=== PATIENT | female | born 1980 | race Caucasian/White ===

== ENCOUNTER → 2023-03-14 06:35 | Day surgery (SDC) | payer OTHER, SELFPAY ==
[2023-03-11 09:06] LABS: % Basophils 0.4 % (0-2); % Eosinophils 1.1 % (0-6); % Immature Granulocytes 0.1 % (0-0.5); % Monocytes 5.5 % (1.7-9.3); % Neutrophils 62.9 % (42.2-75.2); Absolute Eosinophils 0.1 10^3/uL (0-0.7); Absolute Lymphocytes 2.1 10^3/uL (1.2-3.4); Absolute Monocytes 0.4 10^3/uL (0.1-0.6); Absolute Neutrophils 4.5 10^3/uL (1.4-6.5); Hematocrit 37.9 % (37.0-47.0); Hemoglobin 12.8 g/dL (12.0-16.0); Mean Corp Hgb Conc. 33.8 g/dL (33.0-37.0); Mean Corpuscular Hgb 31.1 pg (27.0-31.0); Mean Corpuscular Volume 92.2 fL (81.0-99.0); Mean Platelet Volume 10.9 fL (7.4-10.4); Nucleated Red Blood Cells % 0 %; Platelet Count 287 10^3/uL (130-400); Red Blood Cell Count 4.11 10^6/uL (4.20-5.40); White Blood Cell Count 7.1 10^3/uL (4.8-10.8)
[2023-03-11 09:31] LABS: Chloride 103 mmol/L (98-107); Potassium 4.1 mmol/L (3.5-5.1); Sodium 139 mmol/L (135-145)
[2023-03-11 09:47] LABS: Blood Urea Nitrogen 19 mg/dl (7-17); Calcium 9.3 mg/dl (8.4-10.2); Carbon Dioxide 26 mmol/L (22-30); Glucose 89 mg/dl (70-99); eGFR > 60.00
[2023-03-11 11:30] LABS: HCG, Urine Qualitative Screen Negative
[2023-03-11 14:20] VITALS: BMI 36.1
== END ==
LOC: SDS 06:35
PROVIDERS: ATTENDING PHYSICIAN Obstetrics & Gynecology; FAMILY PHYSICIAN Nurse Practitioner Family
DX: N92.1 Excessive and frequent menstruation with irregular cycle (principal); Z53.8 Procedure and treatment not carried out for other reasons
CPT/HCPCS: 58558; 36415; 80048; 81025; 85025; 86850; 86900; 86901

== ENCOUNTER → 2023-04-30 09:32 | Outpatient (REF) | payer OTHER, SELFPAY | LOC: WDC 09:32 | PROVIDERS: ATTENDING PHYSICIAN Nurse Practitioner Family | DX: Z12.31 Encounter for screening mammogram for malignant neoplasm of breast (principal) | CPT/HCPCS: 77063; 77067 ==

== ENCOUNTER 2023-08-08 06:12 | Day surgery (SDC) | payer OTHER, SELFPAY ==
[2023-08-06 08:44] LABS: HCG, Urine Qualitative Screen Negative
[2023-08-06 08:47] LABS: % Basophils 0.5 % (0-2); % Eosinophils 1.4 % (0-6); % Immature Granulocytes 0.3 % (0-0.5); % Lymphocytes 34.6 % (20.5-51.1); % Monocytes 7.5 % (1.7-9.3); % Neutrophils 55.7 % (42.2-75.2); Absolute Eosinophils 0.1 10^3/uL (0-0.7); Absolute Lymphocytes 2.3 10^3/uL (1.2-3.4); Absolute Monocytes 0.5 10^3/uL (0.1-0.6); Absolute Neutrophils 3.6 10^3/uL (1.4-6.5); Hematocrit 38.4 % (37.0-47.0); Hemoglobin 13.1 g/dL (12.0-16.0); Mean Corp Hgb Conc. 34.1 g/dL (33.0-37.0); Mean Corpuscular Hgb 31.1 pg (27.0-31.0); Mean Corpuscular Volume 91.2 fL (81.0-99.0); Mean Platelet Volume 10.1 fL (7.4-10.4); Nucleated Red Blood Cells % 0 %; Platelet Count 270 10^3/uL (130-400); Red Blood Cell Count 4.21 10^6/uL (4.20-5.40); Red Cell Dist. Width 12.5 % (11.5-14.5); White Blood Cell Count 6.5 10^3/uL (4.8-10.8)
[2023-08-06 09:13] LABS: Blood Urea Nitrogen 17 mg/dl (7-17); Calcium 9.3 mg/dl (8.4-10.2); Carbon Dioxide 23 mmol/L (22-30); Chloride 106 mmol/L (98-107); Glucose 90 mg/dl (70-99); Potassium 4.5 mmol/L (3.5-5.1); Sodium 138 mmol/L (135-145); eGFR > 60.00
[2023-08-08] VITALS (10 sets, daily range): BP systolic 113–137; BP diastolic 64–84; BMI 35.6
[2023-08-08] MEDS: NORMOSOL-R 1000 IV (08:40)
[2023-08-08] MEDS: DILAUDID 0.5 MG IV (09:52)
[2023-08-08] MEDS: ZOFRAN 4 MG IV (10:00)
[2023-08-08] MEDS: COMPAZINE 5 MG IV (10:17)
[2023-08-08] MEDS: TYLENOL 650 MG PO (10:38)
[2023-08-08] MEDS: ROXICODONE 10 MG PO (10:38)
== END 2023-08-08 11:53 | disposition home or self-care (01) ==
LOC: SDS 06:12
PROVIDERS: ATTENDING PHYSICIAN Obstetrics & Gynecology; FAMILY PHYSICIAN Nurse Practitioner Family
DX: N92.0 Excessive and frequent menstruation with regular cycle (principal); N94.6 Dysmenorrhea, unspecified
CPT/HCPCS: 58563; 88305; 36415; 80048; 81025; 85025; 86850; 86900; 86901

== ENCOUNTER → 2023-09-20 12:59 | Outpatient (REF) | payer OTHER, SELFPAY | LOC: HWEVLT 12:59 | PROVIDERS: ATTENDING PHYSICIAN Radiology Diagnostic Radiology | DX: I83.893 Varicose veins of bilateral lower extremities with other complications (principal) | CPT/HCPCS: 93970 ==

== ENCOUNTER → 2023-11-08 13:56 | Outpatient (REF) | payer OTHER, SELFPAY | LOC: HWEVLT 13:56 | PROVIDERS: ATTENDING PHYSICIAN Radiology Diagnostic Radiology | DX: I83.891 Varicose veins of right lower extremity with other complications (principal) | CPT/HCPCS: 93971 ==

== ENCOUNTER 2024-01-05 17:48 | Emergency (ER) | payer OTHER, SELFPAY ==
[2024-01-05 17:50] VITALS: BP 130/93
--- NOTE | 2024-01-05 18:13 | ED.GENMED ---
Addendum entered and electronically signed by Luis Bragg DO 01/05/24 19:48:
Received a call from patient's surgeon Dr. Kerr [phone] she requested that I replace her KELTON drain
Consent received from the patient sterile technique new 19-gauge tube placed without difficulty
Procedure note
KELTON drain placement
Indication KELTON drain fell out
Local anesthetic 4 cc 1% lidocaine with epinephrine
Verbal consent timeout 19-gauge tube sterile technique placed through patent stoma without difficulty
Bulb placed, tube sutured in place,
Original Note:
History of Present Illness
General
Chief Complaint: Post Operative Problem(s)
Source: patient
Exam Limitations: none
Time Seen by Provider: 01/05/24 18:01
Nursing documentation reviewed up to this point in time: agreed with
History of Present Illness
History of Present Illness:
43-year-old female status post tummy tuck a few weeks ago by Dr. Kerr at an outpatient center, postoperatively she had what sounds like a wound dehiscence in the central portion of her wound being treated with sclerotherapy in the office and
antibiotics also had 2 KELTON drains 1 of which was removed 1 of which was Pain due to some drainage, now or so ago that this remaining KELTON drain encounter pant leg fell outpatient put it back in and she is very nervous apparently could not get a hold of
the on-call doctor when I went in to see her the she was on the phone with the on-call doctor who suggested that the KELTON be removed and will follow-up in the office patient has had no fever no nausea no vomiting
Past History
Past History
ED Past Medical History: Other (Herniated Disc. , Chronic back problems)
ED Past Surgical History: Other (Gastric sleeve tummy tuck)
Social History
Tobacco: Smoker
Alcohol: Occasional
Drug: None
Personal:
Living: with family
Employment: Employed
Review of Systems
Review of Systems
All Other Systems: Not applicable
Constitutional: Denies fever or fatigue
Skin: Reports other (Some wound drainage)
Psychiatric: Reports anxiety
Phy Exam
Physical Exam
Physical Exam:
Physical Exam
General: Tearful 43-year-old
Neck: No jaundice
Heart: s1/s2 regular rate and rhythm, no murmur. equal radial pulses.
Lungs: no acute respiratory distress. clear bilaterally
Abdomen: Midline lower abdominal horizontal wound some mild erythema looks like an old dehiscence, KELTON almost completely out from the left lower abdominal wound but not function
Neuro: alert and oriented. no focal neurological deficits
Skin: no rash
Psychiatric: well kept. interactive and cooperative
Extremities: no edema.
Sepsis
Sepsis Screening
Sepsis Assessment: Sepsis Ruled Out
Sepsis Screen
Sepsis Screen: Sepsis Ruled Out
Date: 01/05/24
Time: 18:32
Course
Orders/Labs/Results
Orders:
Orders
01/05/24 18:11
Lorazepam [Ativan] 1 mg PO NOW STA
Vital Signs
Initial and Last Documented VS:
Initial Vital Signs
Temp Pulse Resp BP Pulse Ox
98.1 F 102 16 130/93 98
01/05/24 17:50 01/05/24 17:50 01/05/24 17:50 01/05/24 17:50 01/05/24 17:50
Last Documented Vital Signs
Temp Pulse Resp BP Pulse Ox
98.1 F 102 16 130/93 98
01/05/24 17:50 01/05/24 17:50 01/05/24 17:50 01/05/24 17:50 01/05/24 17:50
*Critical Care Note
Total Time (30-74mins, 75-104mins- exclusive of procedures): Not Applicable
Update Note
Update Note:
KELTON removed sterile dressing placed, patient will follow-up with her surgeon
ED Attending Note
-
Portions of this chart may have been created with voice recognition software.� Occasional wrong word or��sound alike� substitutions may have occurred due to the inherent limitations of voice recognition software.
Discharge Plan
Departure
Patient Disposition: Home (Routine Discharge)
Date of Disposition: 01/05/24
Time of Disposition: 18:15
Patient with high blood pressure during this ER visit?: No
Condition: Good
Discharge Problem:
Post surgical complication
Instructions: Wound Care (DC), Bleeding After Surgery
Prescriptions:
No Action
multivitamin Tablet
1 tab PO DAILY
omeprazole 40 mg Capsule,Delayed Release(Dr/Ec)
40 mg PO DAILY
mesalamine 1.2 gram Tablet,Delayed Release (Dr/Ec)
1.2 g PO BID
sumatriptan succinate [Imitrex] 100 mg Tablet
100 mg PO PRN PRN (Reason: migraines)
famotidine 40 mg Tablet
40 mg PO DAILY
topiramate 25 mg Tablet
25 mg PO BID
phentermine 37.5 mg Tablet
37.5 mg PO DAILY
citalopram 20 mg Tablet
20 mg PO DAILY
zolpidem 10 mg Tablet
10 mg PO HS PRN (Reason: insomnia)
Emgality Pen 120 mg/mL Pen Injector
120 mg SC QMONTH
oxycodone 5 mg tablet
5 mg PO Q4H PRN (Reason: Pain) Qty: 7 0RF
Activity Restrictions/Additional Instructions:
Continue your antibiotics keep your wounds covered, call your surgeon tomorrow to arrange follow-up care
Interventions
Interventions:
*Risk Screen - Suicide Last Done: 01/05/24 17:50
*Neglect/Abuse Screening Last Done: 01/05/24 17:50
Discharge Date and Time
Print Language: SLOVAK
[2024-01-05] MEDS: ATIVAN 1 MG PO (18:33)
== END 2024-01-05 20:14 | disposition home or self-care (01) ==
LOC: EMR 17:48
PROVIDERS: EMERGENCY PHYSICIAN Emergency Medicine; FAMILY PHYSICIAN Family Medicine
DX: L76.82 Other postprocedural complications of skin and subcutaneous tissue (principal); Z48.03 Encounter for change or removal of drains; F17.200 Nicotine dependence, unspecified, uncomplicated
CPT/HCPCS: 99283

== ENCOUNTER → 2024-02-29 08:10 | Outpatient (REF) | payer OTHER, SELFPAY | LOC: HWEVLT 08:10 | PROVIDERS: ATTENDING PHYSICIAN Radiology Diagnostic Radiology | DX: I83.891 Varicose veins of right lower extremity with other complications (principal) | CPT/HCPCS: 36478 ==

== ENCOUNTER → 2024-03-13 08:04 | Outpatient (REF) | payer OTHER, SELFPAY | LOC: HWEVLT 08:04 | PROVIDERS: ATTENDING PHYSICIAN Radiology Vascular & Interventional Radiology | DX: I83.891 Varicose veins of right lower extremity with other complications (principal) | CPT/HCPCS: 93971 ==

== ENCOUNTER → 2024-05-12 09:11 | Outpatient (REF) | payer OTHER, SELFPAY | LOC: WDC 09:11 | PROVIDERS: ATTENDING PHYSICIAN Nurse Practitioner Family | DX: Z12.31 Encounter for screening mammogram for malignant neoplasm of breast (principal) | CPT/HCPCS: 77063; 77067 ==

== ENCOUNTER → 2024-12-07 13:01 | Outpatient (REF) | payer OTHER, SELFPAY | LOC: RAD 13:01 | PROVIDERS: ATTENDING PHYSICIAN Obstetrics & Gynecology; FAMILY PHYSICIAN Nurse Practitioner Family | DX: N00-N99 Diseases of the genitourinary system (principal); R10.31 Right lower quadrant pain; N92.6 Irregular menstruation, unspecified | CPT/HCPCS: 76830; 76856 ==